=== PATIENT | male | born 1965 | race African-American/Black ===

== ENCOUNTER 2019-03-10 21:06 | Emergency (ER) | payer MEDICAID ==
[~2019-03-10] VITALS: Ht 185.4 cm; Wt 81.8 kg
[2019-03-11 00:41] LABS: BASOPHILS % (AUTO) 0.7 % (0.0-2.0); EOSINOPHILS % (AUTO) 1.9 % (1.0-6.0); HEMATOCRIT 33.1 % (41-53); HEMOGLOBIN 10.7 g/dL (13.5-17.5); LYMPHOCYTES # (AUTO) 1.9 K/uL (1.0-4.8); LYMPHOCYTES % (AUTO) 14.1 % (22.0-44.0); MEAN CORPUSCULAR HEMOGLOBIN 25.9 pg (26.0-34.0); MEAN CORPUSCULAR HGB CONC 32.4 G/dL (31.0-37.0); MEAN CORPUSCULAR VOLUME 80 fL (80-100); MONOCYTES # (AUTO) 0.9 K/uL (0.1-1.0); MONOCYTES % (AUTO) 6.9 % (2.0-9.0); NEUTROPHILS # (AUTO) 10.4 K/uL (1.8-7.7); NEUTROPHILS % (AUTO) 76.4 % (40.0-70.0); PLATELET COUNT (AUTO) 335 K/uL (150-450); RED BLOOD CELL COUNT(AUTO) 4.13 MIL/uL (4.50-5.90); RED CELL DISTRIBUTION WIDTH 15.8 % (11.5-14.5)
[2019-03-11] MEDS ORDERED: ACETAMINOPHEN 325 MG TABLET PO PRN (00:45)
[2019-03-11] MEDS ORDERED: POTASSIUM CHLORIDE 40 MEQ in SODIUM CHLORIDE 0.9% 1,000 ML IV ONE (00:45)
[2019-03-11] MEDS ORDERED: ONDANSETRON HCL 4 MG/2 ML VIAL IVP PRN ×2 (00:45→05:15)
[2019-03-11 00:48] LABS: ANION GAP 9 mmol/L (8-16); CALCIUM, TOTAL 8.9 mg/dL (8.8-10.5); CARBON DIOXIDE 28 mmol/L (22-29); CHLORIDE 100 mmol/L (98-107); GLOMERULAR FILTR. RATE CALC > 60 mL/min (>60); GLUCOSE,RANDOM 102 mg/dL (70-110); POTASSIUM 3.6 mmol/L (3.5-5.1); SODIUM SERUM 137 mmol/L (136-145); UREA NITROGEN, BLOOD 16 mg/dL (7-18)
[2019-03-11 00:54] LABS: ALANINE AMINOTRANSFERASE 37 U/L (12-78); ALBUMIN 2.8 g/dL (3.4-5.0); ALKALINE PHOSPHATASE 130 U/L (46-116); ASPARTATE AMINOTRANSFERASE 22 U/L (15-37); BILIRUBIN,TOTAL 0.3 mg/dL (0.1-1.0)
[2019-03-11] MEDS ORDERED: ACETAMINOPHEN 500 MG TABLET PO ONE (01:45)
[2019-03-11] MEDS ORDERED: METH10SO PO (02:23)
[2019-03-11] MEDS ORDERED: METH5SYR PO (02:23)
[2019-03-11] MEDS ORDERED: CeFAZolin 2 GM/DEXTROSE 50 ML IV ONE (02:45)
[2019-03-11 03:30] VITALS: BP 109/62
[2019-03-11] MEDS ORDERED: HYDROmorphone 2 MG/ML SYRINGE IVP ONE (03:30)
[2019-03-11] MEDS ORDERED: OxyCODONE HCL/ACETAMINOPHEN 5-325 MG TABLET PO PRN ×2 (05:15)
[2019-03-11] MEDS ORDERED: 0.9% SODIUM CHLORIDE 10 ML SYRINGE IVP PRN (05:15)
[2019-03-11] MEDS ORDERED: FAMOTIDINE 10 MG/ML 2 ML VIAL IVP SCH (09:00)
[2019-03-11] MEDS ORDERED: DOCUSATE SODIUM 100 MG CAPSULE PO SCH (09:00)
[2019-03-11] MEDS ORDERED: CeFAZolin 1 GM/DEXTROSE 50 ML IV SCH (11:00)
== END 2019-03-11 06:10 | disposition left against medical advice (07) ==
LOC: EMS 21:11
DX: L02.415 Cutaneous abscess of right lower limb (principal); F17.210 Nicotine dependence, cigarettes, uncomplicated; F12.90 Cannabis use, unspecified, uncomplicated; F11.90 Opioid use, unspecified, uncomplicated
CPT/HCPCS: 36415; 80053; 85025; 96365; 96366; 96368; 96375; 99283; J0690; J1170; J3480; J7030

== ENCOUNTER 2019-09-20 09:13 | Emergency (ER) | payer MEDICAID ==
[~2019-09-20] VITALS: Ht 182.9 cm; Wt 77.3 kg
[~2019-09-20 09:13] MED LIST: METH5SYR PO
[2019-09-20] MEDS ORDERED: LIDOCAINE 1%/EPI 1:200,000/PF 10 ML VIAL INJ ONE (10:45)
[2019-09-20] MEDS ORDERED: LIDOCAINE/PF 1% 2 ML VIAL IM ONE (10:45)
[2019-09-20] MEDS ORDERED: CEPHALEXIN MONOHYDRATE 500 MG CAPSULE PO ONE (10:45)
[2019-09-20] MEDS ORDERED: SULFAMETHOX/TRIMETH DS 800-160 MG/TABLET PO ONE (10:45)
[2019-09-20] MEDS ORDERED: CefTRIAXone SODIUM 1 GM/VIAL IM ONE (10:45)
[2019-09-20] MEDS ORDERED: OxyCODONE HCL/ACETAMINOPHEN 5-325 MG TABLET PO ONE (10:45)
[2019-09-20 11:45] VITALS: BP 141/87
== END 2019-09-20 12:06 | disposition home or self-care (01) ==
LOC: EMS 09:16
DX: L02.415 Cutaneous abscess of right lower limb (principal); L03.115 Cellulitis of right lower limb; F17.210 Nicotine dependence, cigarettes, uncomplicated; F11.90 Opioid use, unspecified, uncomplicated; F12.90 Cannabis use, unspecified, uncomplicated
CPT/HCPCS: 10060; 96372; 99284; 99406; J0696; J3490 ×2

== ENCOUNTER 2020-05-26 14:56 | Emergency (ER) | payer MEDICAID ==
[~2020-05-26] VITALS: Ht 175.3 cm; Wt 75.0 kg
[2020-05-26] MEDS ORDERED: ACYCLOVIR 200 MG CAPSULE PO ONE (16:00)
[2020-05-26] MEDS ORDERED: PredniSONE 20 MG TABLET PO ONE (16:00)
[2020-05-26] MEDS ORDERED: HYDROCODONE/ACETAMINOPHEN 5-325 MG TABLET PO ONE (16:00)
[2020-05-26 16:34] VITALS: BP 133/71
== END 2020-05-26 16:42 | disposition home or self-care (01) ==
LOC: EMS 14:59
DX: B02.9 Zoster without complications (principal); B02.21 Postherpetic geniculate ganglionitis; F17.210 Nicotine dependence, cigarettes, uncomplicated; F12.90 Cannabis use, unspecified, uncomplicated; F11.90 Opioid use, unspecified, uncomplicated
CPT/HCPCS: 99284; J7512

== ENCOUNTER 2020-05-31 19:11 | Emergency (ER) | payer MEDICAID ==
[~2020-05-31] VITALS: Ht 182.9 cm; Wt 81.8 kg
[2020-05-31 19:27] VITALS: BP 113/65
== END 2020-05-31 21:50 | disposition left against medical advice (07) ==
LOC: EMS 19:14
DX: R21 Rash and other nonspecific skin eruption (principal); Z53.21 Procedure and treatment not carried out due to patient leaving prior to being seen by health care provider

== ENCOUNTER 2020-06-01 09:13 | Emergency (ER) | payer MEDICAID ==
[~2020-06-01] VITALS: Ht 182.9 cm; Wt 81.8 kg
[2020-06-01 09:30] VITALS: BP 126/71
[2020-06-01] MEDS ORDERED: LIDOCAINE 5% TRANSDERMAL PATCH TD ONE (09:30)
== END 2020-06-01 09:37 | disposition home or self-care (01) ==
LOC: EMS 09:15
DX: B02.29 Other postherpetic nervous system involvement (principal); B02.21 Postherpetic geniculate ganglionitis; F17.210 Nicotine dependence, cigarettes, uncomplicated; F12.90 Cannabis use, unspecified, uncomplicated; F11.90 Opioid use, unspecified, uncomplicated
CPT/HCPCS: 99282; Z7502; Z7610

== ENCOUNTER 2021-03-13 15:05 | Emergency (ER) | payer MEDICAID ==
[~2021-03-13] VITALS: Ht 185.4 cm; Wt 90.9 kg
[2021-03-13] MEDS ORDERED: RINGERS SOLUTION,LACTATED 1,000 ML IV ONE ×3 (15:45→20:15)
[2021-03-13 16:12] LABS: BASOPHILS % (AUTO) 0.3 % (0.0-2.0); EOSINOPHILS % (AUTO) 0.1 % (1.0-6.0); HEMATOCRIT 32.8 % (41-53); HEMOGLOBIN 10.7 g/dL (13.5-17.5); LYMPHOCYTES # (AUTO) 2.1 K/uL (1.0-4.8); LYMPHOCYTES % (AUTO) 12.3 % (22.0-44.0); MEAN CORPUSCULAR HEMOGLOBIN 22.9 pg (26.0-34.0); MEAN CORPUSCULAR HGB CONC 32.6 G/dL (31.0-37.0); MEAN CORPUSCULAR VOLUME 70 fL (80-100); MONOCYTES # (AUTO) 0.9 K/uL (0.1-1.0); MONOCYTES % (AUTO) 5.5 % (2.0-9.0); NEUTROPHILS % (AUTO) 81.8 % (40.0-70.0); PLATELET COUNT (AUTO) 472 K/uL (150-450); RED BLOOD CELL COUNT(AUTO) 4.67 MIL/uL (4.50-5.90); RED CELL DISTRIBUTION WIDTH 17.5 % (11.5-14.5)
[2021-03-13 16:22] LABS: ANION GAP 10 mmol/L (8-16); CALCIUM, TOTAL 8.9 mg/dL (8.8-10.5); CARBON DIOXIDE 24 mmol/L (22-29); CHLORIDE 98 mmol/L (98-107); CREATININE 1.06 mg/dL (0.60-1.30); GLOMERULAR FILTR. RATE CALC > 60 mL/min (>60); GLUCOSE,RANDOM 141 mg/dL (70-110); POTASSIUM 4.2 mmol/L (3.5-5.1); SODIUM SERUM 132 mmol/L (136-145); UREA NITROGEN, BLOOD 19 mg/dL (7-18)
[2021-03-13 16:23] LABS: C-REACTIVE PROTEIN QUANT 8.16 mg/dL (0.00-0.30)
[2021-03-13 16:28] LABS: INR 1.1 (0.9-1.1); PROTHROMBIN TIME 11.4 SEC (9.4-11.6)
[2021-03-13] MEDS ORDERED: IOHEXOL 350 MG/ML 100 ML VIAL ONE (16:43)
[2021-03-13] MEDS ORDERED: SODIUM CHLORIDE 0.9% 100 ML ONE (16:43)
[2021-03-13] MEDS ORDERED: IOHEXOL 350 MG/ML 150 ML VIAL ONE (16:45)
[2021-03-13] MEDS ORDERED: VANCOMYCIN HCL 1.25 GM in DEXTROSE 5%-WATER 250 ML IV ONE (16:45)
[2021-03-13] MEDS ORDERED: VANCOMYCIN HCL 500 MG in DEXTROSE 5%-WATER 100 ML IV ONE (16:45)
[2021-03-13] MEDS ORDERED: PIPERACILLIN/TAZO 3.375 GM/D5W 50 ML IV ONE (16:45)
[2021-03-13] MEDS ORDERED: FentaNYL CITRATE PF 100 MCG/2 ML VIAL IVP STA (18:35)
[2021-03-13 19:53] VITALS: BP 120/56
[2021-03-13] MEDS ORDERED: MORPHINE SULFATE 10 MG/ML VIAL IVP ONE (20:15)
== END 2021-03-13 21:02 | disposition left against medical advice (07) ==
LOC: EMS 15:08
DX: A41.9 Sepsis, unspecified organism (principal); L02.415 Cutaneous abscess of right lower limb; M79.5 Residual foreign body in soft tissue
CPT/HCPCS: 36415; 73552; 73701; 80048; 83605; 85025; 85610; 86140; 87040; 96365; 96375; 99285; J2270; J2543; J3370 ×2; J7050; J7060 ×2; J7120; Q9967

== ENCOUNTER 2021-03-15 11:19 | Emergency (ER) | payer MEDICAID ==
[~2021-03-15] VITALS: Ht 185.4 cm; Wt 81.8 kg
[2021-03-15] MEDS ORDERED: DOXY-354 PO (11:23)
[2021-03-15] MEDS ORDERED: AMOX1TAB16 PO (11:23)
[2021-03-15] MEDS ORDERED: 0.9% SODIUM CHLORIDE 10 ML SYRINGE IVP PRN (14:00)
[2021-03-15 14:18] LABS: HEMOGLOBIN 12.4 g/dL (13.5-17.5)
[2021-03-15 14:24] LABS: HEMATOCRIT 38.4 % (41-53); MEAN CORPUSCULAR HEMOGLOBIN 22.9 pg (26.0-34.0); MEAN CORPUSCULAR HGB CONC 32.4 G/dL (31.0-37.0); MEAN CORPUSCULAR VOLUME 71 fL (80-100); PLATELET COUNT (AUTO) 521 K/uL (150-450); RED BLOOD CELL COUNT(AUTO) 5.43 MIL/uL (4.50-5.90); RED CELL DISTRIBUTION WIDTH 17.4 % (11.5-14.5)
[2021-03-15 14:29] LABS: ANION GAP 9 mmol/L (8-16); CALCIUM, TOTAL 8.8 mg/dL (8.8-10.5); CARBON DIOXIDE 25 mmol/L (22-29); CHLORIDE 95 mmol/L (98-107); CREATININE 1.45 mg/dL (0.60-1.30); GLOMERULAR FILTR. RATE CALC > 60 mL/min (>60); GLUCOSE,RANDOM 135 mg/dL (70-110); POTASSIUM 4.2 mmol/L (3.5-5.1); SODIUM SERUM 129 mmol/L (136-145); UREA NITROGEN, BLOOD 38 mg/dL (7-18)
[2021-03-15 14:34] LABS: ALANINE AMINOTRANSFERASE 20 U/L (12-78); ALBUMIN 2.2 g/dL (3.4-5.0); ALKALINE PHOSPHATASE 109 U/L (46-116); ASPARTATE AMINOTRANSFERASE 52 U/L (15-37); BILIRUBIN,TOTAL 0.4 mg/dL (0.1-1.0); TOTAL PROTEIN, SERUM 9.4 g/dL (6.4-8.2)
[2021-03-15 14:37] LABS: INR 1.1 (0.9-1.1); PROTHROMBIN TIME 11.2 SEC (9.4-11.6)
[2021-03-15 14:41] LABS: LACTIC ACID 3.6 mmol/L (0.4-2.0)
[2021-03-15] MEDS ORDERED: IOHEXOL 350 MG/ML 150 ML VIAL ONE (14:52)
[2021-03-15] MEDS ORDERED: SODIUM CHLORIDE 0.9% 0 ML ONE (14:52)
[2021-03-15 14:56] LABS: BAND NEUTROPHILS % (MANUAL) 2 % (0-5); EOSINOPHILS % (MANUAL) 1 % (1-6); LYMPHOCYTES % (MANUAL) 6 % (22-44); METAMYELOCYTES % 2 % (0-0); MONOCYTES % (MANUAL) 1 % (2-9); SEGMENTED NEUTROPHILS % 88 % (40-70)
[2021-03-15] MEDS ORDERED: VANCOMYCIN HCL 1 GM/D5% WATER 200 ML IV ONE (15:30)
[2021-03-15] MEDS ORDERED: SODIUM CHLORIDE 0.9% 2,400 ML IV ONE (15:45)
[2021-03-15 17:41] LABS: APPEARANCE,URINE CLEAR (CLEAR); BILIRUBIN,URINE NEGATIVE (NEGATIVE); GLUCOSE, URINE (UA) NEGATIVE (NEGATIVE); KETONES,URINE TRACE mg/dL (NEGATIVE); LEUKOCYTE ESTERASE ,URINE TRACE (NEGATIVE); NITRATE,URINE NEGATIVE (NEGATIVE); OCCULT BLOOD,URINE NEGATIVE (NEGATIVE); PH,URINE 5.5 (5.0-8.0); PROTEIN,URINE POS 1+ (NEGATIVE); UROBILINOGEN,URINE 0.2 mg/dL (<=1.0)
[2021-03-15 17:59] LABS: BACTERIA,URINE None Seen /HPF (None Seen); FINE GRANULAR CASTS,URINE 0-2 /LPF (None Seen); RBC,URINE None Seen /HPF (0-2); WBC,URINE 0-2 /HPF (0-5)
[2021-03-15 18:07] VITALS: BP 127/54
[2021-03-15] MEDS ORDERED: PIPERACILLIN/TAZO 3.375 GM/D5W 50 ML IV ONE (18:30)
[2021-03-15 18:33] LABS: COVID AG,FIA SOURCE NASOPHARYNGEAL
== END 2021-03-15 21:56 | disposition short-term general hospital (02) ==
LOC: EMS 11:21
DX: A41.9 Sepsis, unspecified organism (principal); M72.6 Necrotizing fasciitis; F11.988 Opioid use, unspecified with other opioid-induced disorder; F17.210 Nicotine dependence, cigarettes, uncomplicated; Z20.822 Contact with and (suspected) exposure to COVID-19
CPT/HCPCS: 36415; 71045; 80053; 81001; 83605; 85025; 85610; 87040; 87426; 93005; 96361; 96365; 96367; 99291; J2543; J3370; J7030; J7050; Q9967

== ENCOUNTER 2021-04-02 22:04 | Emergency (ER) | payer MEDICAID ==
[~2021-04-02] VITALS: Ht 185.4 cm; Wt 82.0 kg
[~2021-04-02 22:04] MED LIST changes: +AMOX1TAB16 PO; +DOXY-354 PO; -METH5SYR PO
[2021-04-03 01:30] VITALS: BP 121/74
== END 2021-04-03 03:48 | disposition home or self-care (01) ==
LOC: EMS 22:06
DX: Z48.01 Encounter for change or removal of surgical wound dressing (principal); F11.90 Opioid use, unspecified, uncomplicated; F17.210 Nicotine dependence, cigarettes, uncomplicated
CPT/HCPCS: 99281; Z7502

== ENCOUNTER 2021-04-06 09:44 | Emergency (ER) | payer MEDICAID ==
[~2021-04-06] VITALS: Ht 185.4 cm; Wt 82.3 kg
[2021-04-06] MEDS ORDERED: BACITRACIN 0.9 GM PACKET OINTMENT TP ONE (11:00)
[2021-04-06] MEDS ORDERED: DOXYCYCLINE HYCLATE 100 MG TABLET PO ONE (11:00)
[2021-04-06] MEDS ORDERED: BACITRACIN 28 GM OINTMENT TP ONE (11:15)
[2021-04-06] MEDS ORDERED: DOXY-354 PO (11:57)
[2021-04-06 12:16] VITALS: BP 129/68
== END 2021-04-06 12:17 | disposition left against medical advice (07) ==
LOC: EMS 09:46
DX: L08.9 Local infection of the skin and subcutaneous tissue, unspecified (principal); F11.90 Opioid use, unspecified, uncomplicated; F17.210 Nicotine dependence, cigarettes, uncomplicated
CPT/HCPCS: 99283

== ENCOUNTER 2024-02-17 07:43 | Emergency (ER) | payer MEDICAID, OTHER ==
[~2024-02-17] VITALS: Ht 182.9 cm; Wt 70.5 kg
[~2024-02-17 07:43] MED LIST changes: -AMOX1TAB16 PO
[2024-02-17 07:47] VITALS: TEMP 98.7
[2024-02-17] MEDS ORDERED: BUPR1TAB45 SL (08:15)
[2024-02-17 08:18] VITALS: BP 155/89; PULSE 68; RESP 24; O2SAT 99
[2024-02-17] MEDS: METHADONE HCL 10 MG TABLET PO ONE (08:36)
== END 2024-02-17 08:38 | disposition home or self-care (01) ==
LOC: EMS 07:45
DX: F11.23 Opioid dependence with withdrawal (principal); F17.210 Nicotine dependence, cigarettes, uncomplicated
CPT/HCPCS: 99283

== ENCOUNTER 2024-09-24 09:32 | Emergency (ER) | payer OTHER ==
[~2024-09-24] VITALS: Ht 182.9 cm; Wt 80.9 kg
[~2024-09-24 09:32] MED LIST changes: +BUPR1TAB45 SL; +BUPR1TAB46 SL; +DIPH-1130 PO; -DOXY-354 PO; +ONDA-104 PO
[2024-09-24 14:21] VITALS: BP 163/82; PULSE 92; RESP 18; TEMP 98.8; O2SAT 97
== END 2024-09-24 14:30 | disposition left against medical advice (07) ==
LOC: EMS 09:36
DX: S80.211A Abrasion, right knee, initial encounter (principal); G89.29 Other chronic pain; M25.551 Pain in right hip; F17.210 Nicotine dependence, cigarettes, uncomplicated; F11.90 Opioid use, unspecified, uncomplicated; Z79.899 Other long term (current) drug therapy; V19.9XXA Pedal cyclist (driver) (passenger) injured in unspecified traffic accident, initial encounter; Y93.I9 Activity, other involving external motion; Y92.488 Other paved roadways as the place of occurrence of the external cause; Y99.8 Other external cause status
CPT/HCPCS: 99283